=== PATIENT | female | born 1995 | race Caucasian/White ===

== ENCOUNTER 2023-10-11 00:09 | Emergency (ER) | payer OTHER ==
--- NOTE | 2023-10-11 00:12 | ED Physician Documentation ---
PD HPI ABD PAIN - Stated complaint Stated Complaint: D/STOMACH PX - History obtained from History obtained from: Patient - Additional information Additional information: HPI from patient. Patient complains of approximately 5 days of nausea, vomiting, diarrhea, and upper abdominal pain. She describes the pain as burning and indicates the location is primarily epigastric although it also radiates around the right upper quadrant, right flank, to the right upper paralumbar region. Pain waxes and wanes without apparent ameliorating factors but exacerbated with PO intake (PO intake also exacerbates her n/v/d). Denies blood in the vomitus although has noted trace bright red blood after bowel movements when she wipes (on the toilet paper). Denies chance of . She has had similar but milder symptoms over the past 3 weeks since starting weekly Trulicity. Her most recent dose of Trulicity was 5 days ago and her symptoms became noticeably worse that night and have been steadily progressive in persistence and intensity. Denies fever. Has not been on antibiotics recently Review of Systems Constitutional: denies: Fever, Chills, Sweats Cardiac: reports: Reviewed and negative Respiratory: reports: Reviewed and negative GI: reports: Abdominal Pain, Abdominal Swelling, Nausea, Vomiting, Diarrhea. denies: Constipation, Hematemesis : denies: Dysuria, Frequency, Now [facility] PD PAST MEDICAL HISTORY - Past Medical History Past Medical History: Yes Other Past Medical History: PCOS - Past Surgical History Past Surgical History: No - Present Medications Home Medications: Ambulatory Orders Medication Instructions Recorded Confirmed Diphenoxylate/Atropine [Lomotil] 1 each PO QID PRN #10 tablet 10/11/23 Gabapentin [Neurontin] 300 mg PO DAILY 10/11/23 10/11/23 Norethindrone AC-Eth Estradiol 1 tab PO DAILY 10/11/23 10/11/23 [Loestrin 21 1.5-30 Tablet] Ondansetron Odt [Zofran Odt] 4 mg TL Q6H PRN #14 tablet 10/11/23 PARoxetine HCL [Paxil] 20 mg PO DAILY 10/11/23 10/11/23 metFORMIN [Glucophage] 500 mg PO BID 10/11/23 10/11/23 - Allergies Allergies/Adverse Reactions: Allergies Allergy/AdvReac Type Severity Reaction Status Date / Time No Known Drug Allergies Allergy Verified 10/11/23 00:25 PD ED PE NORMAL - Vitals Vital signs reviewed: Yes - General General: Alert and oriented X 3, No acute distress, Well developed/nourished - HEENT HEENT: Moist mucous membranes - Cardiac Cardiac: RRR, No murmur - Respiratory Respiratory: No respiratory distress, Clear bilaterally - Abdomen Abdomen: Soft, Non distended, Other (mild RUQ TTP without rebound or guarding) - Back Back: No CVA TTP - Derm Derm: Normal color, Warm and dry, No rash Results - Vitals Vitals: Vital Signs - 24 hr 10/11/23 10/11/23 00:10 03:23 Temperature 36.5 C Heart Rate 99 77 Respiratory 16 18 Rate Blood Pressure 149/106 H 151/102 H O2 Saturation 100 97 Oxygen O2 Source Room air - Labs Labs: Laboratory Tests 10/11/23 10/11/23 10/11/23 00:50 01:26 01:26 WBC 12.6 H RBC 5.85 H Hgb 13.3 Hct 45.0 MCV 76.9 L MCH 22.7 L MCHC 29.6 L RDW 14.6 Plt Count 376 MPV 10.2 Neut # (Auto) 7.5 H Lymph # (Auto) 3.5 [place] # (Auto) 0.7 Eos # (Auto) 0.8 H Baso # (Auto) 0.1 Absolute Nucleated RBC 0.00 Nucleated RBC % 0.0 Sodium 140 Potassium 3.6 Chloride 105 Carbon Dioxide 26 Anion Gap 9.0 BUN 8 Creatinine 0.7 Estimated GFR (MDRD) 101 Glucose 103 Calcium 9.5 Total Bilirubin 0.2 AST 16 ALT 19 Alkaline Phosphatase 63 Total Protein 6.9 Albumin 4.0 Globulin 2.9 Albumin/Globulin Ratio 1.4 Lipase 13 Urine Color YELLOW Urine Clarity HAZY Urine pH 8.0 H Ur Specific [place] 1.025 Urine Protein TRACE Urine Glucose (UA) NEGATIVE Urine Ketones NEGATIVE Urine Occult Blood TRACE-INTA Urine Nitrite NEGATIVE Urine Bilirubin SMALL H Urine Urobilinogen 0.2 (NORMAL) Ur Leukocyte Esterase TRACE H Urine RBC 0-5 Urine WBC 4-5 Ur Squamous Epith Cells MANY Squamous H Urine Bacteria Moderate H Urine Mucus Moderate Strands Ur Microscopic Review INDICATED Urine Culture Comments NOT INDICATED Urine HCG, Qual NEGATIVE Stl C. diff Tox B Gene 10/11/23 02:25 WBC RBC Hgb Hct MCV MCH MCHC RDW Plt Count MPV Neut # (Auto) Lymph # (Auto) [place] # (Auto) Eos # (Auto) Baso # (Auto) Absolute Nucleated RBC Nucleated RBC % Sodium Potassium Chloride Carbon Dioxide Anion Gap BUN Creatinine Estimated GFR (MDRD) Glucose Calcium Total Bilirubin AST ALT Alkaline Phosphatase Total Protein Albumin Globulin Albumin/Globulin Ratio Lipase Urine Color Urine Clarity Urine pH Ur Specific [place] Urine Protein Urine Glucose (UA) Urine Ketones Urine Occult Blood Urine Nitrite Urine Bilirubin Urine Urobilinogen Ur Leukocyte Esterase Urine RBC Urine WBC Ur Squamous Epith Cells Urine Bacteria Urine Mucus Ur Microscopic Review Urine Culture Comments Urine HCG, Qual Stl C. diff Tox B Gene NEGATIVE PD Medical Decision Making - ED course Complexity details: reviewed results, re-evaluated patient, considered differential, d/w patient ED course: Mild leukocytosis (wbc 12.6), normal ER abdominal panel. Appendicitis unlikely (five days of symptoms with only mild RUQ tenderness on exam); no imaging studies indicated at this time. She is given 2 tablets lomotil PO, 4mg IV zofran, 1 liter NS IV, and 30cc maalox PO (viscous lidocaine ordered but currently not in stock and thus not given). She reports improvement with these measures. Declines pain medication both initially and on reevaluation. Results d/w patient, return precautions reviewed. Side effect of trulicity is likely explanation for her symptoms and I advised her to discontinue this medication and to seek follow up with PCP for reevaluation. Prescriptions for zofran and lomotil electronically submitted to patient's pharmacy of choice. Departure - Departure Disposition: 01 Home, Self Care Clinical Impression: Abdominal pain Qualifiers: Abdominal location: right upper quadrant Qualified Code(s): R10.11 - Right upper quadrant pain Condition: Good Instructions: ED Abdominal Pain Female Non-Specific Abdominal Pain Prescriptions: Diphenoxylate/Atropine [Lomotil] 1 each PO QID PRN #10 tablet PRN Reason: Diarrhea Ondansetron Odt [Zofran Odt] 4 mg TL Q6H PRN #14 tablet PRN Reason: Nausea / Vomiting Comments: There were no concerning nor diagnostic findings on tonight's test, including the blood tests and urinalysis. As we discussed, your white blood cell count was slightly elevated above the normal range; this is a non-specific finding and it is not elevated to a concerning extent. The cause of your symptoms is not apparent at this time, but side effect(s) of the Trulicity seems a likely explanation. You should discontinue use of Trulicity until and unless you are advised otherwise by your primary care provider. Contact your primary care provider when the office is next open to arrange for the next available appointment for reevaluation/follow-up. I have electronically submitted prescriptions for ondansetron (antinausea medication) and Lomotil (antidiarrheal medication) to the [facility] pharmacy in [place]. Forms: PCP List Discharge Date/Time: 10/11/23 03:24
[2023-10-11] MEDS: DIPHENOX/ATROPINE 2.5/0.025 MG TABLET PO STA (01:25)
[2023-10-11] MEDS: MAG HYDROX/AL HYDROX/SIMETH 30 ML UDC PO STA (01:25)
[2023-10-11] MEDS: ONDANSETRON 4 MG/2 ML VIAL IVP STA (01:25)
[2023-10-11] MEDS: SODIUM CHLORIDE 0.9% 1,000 ML IV STA (01:26)
[2023-10-11 01:35] LABS: BASOPHILS # (AUTO) 0.1 10^3/uL (0.0-0.1); BASOPHILS % (AUTO) 0.4 %; EOSINOPHILS # (AUTO) 0.8 10^3/uL (0.0-0.7); EOSINOPHILS % (AUTO) 6.3 %; HGB - HEMOGLOBIN 13.3 g/dL (12.0-16.0); LYMPHOCYTES # (AUTO) 3.5 10^3/uL (1.5-3.5); LYMPHOCYTES % (AUTO) 27.7 %; MEAN CORPUSCULAR HEMOGLOBIN 22.7 pg (27.0-31.0); MEAN CORPUSCULAR HGB CONC 29.6 g/dL (32.0-36.0); MEAN CORPUSCULAR VOLUME 76.9 fL (81.0-99.0); MEAN PLATELET VOLUME 10.2 fL (7.9-10.8); MONOCYTES # (AUTO) 0.7 10^3/uL (0.0-1.0); MONOCYTES % (AUTO) 5.9 %; NEUTROPHILS # (AUTO) 7.5 10^3/uL (1.5-6.6); NEUTROPHILS % (AUTO) 59.4 %; PLT - PLATELET COUNT 376 10^3/uL (130-450); RED BLOOD COUNT 5.85 10^6/uL (4.20-5.40); RED CELL DISTRIBUTION WIDTH 14.6 % (12.0-15.0); WHITE BLOOD COUNT 12.6 x10^3/uL (4.8-10.8)
[2023-10-11 01:53] LABS: BILIRUBIN,URINE SMALL (NEGATIVE); GLUCOSE, URINE (UA) NEGATIVE (NEGATIVE); KETONES,URINE (UA) NEGATIVE (NEGATIVE); LEUKOCYTE ESTERASE, URINE TRACE (NEGATIVE); NITRITE,URINE NEGATIVE (NEGATIVE); OCCULT BLOOD,URINE TRACE-INTA (NEGATIVE); PROTEIN,URINE TRACE mg/dL (NEGATIVE); UROBILINOGEN,URINE 0.2 (NORMAL) E.U./dL (NORMAL)
[2023-10-11 01:55] LABS: ALBUMIN/GLOBULIN RATIO 1.4 (1.0-2.2); BILIRUBIN,TOTAL 0.2 mg/dL (0.2-1.0); CALCIUM 9.5 mg/dL (8.5-10.3); CREATININE 0.7 mg/dL (0.6-1.3); POTASSIUM 3.6 mmol/L (3.5-4.5); TOTAL PROTEIN 6.9 g/dL (6.4-8.9)
[2023-10-11 02:07] LABS: CLARITY,URINE HAZY (CLEAR); HCG UR QUAL NEGATIVE
[2023-10-11 02:08] LABS: BACTERIA,URINE Moderate /HPF (None Seen); MUCUS,URINE Moderate Strands; RBC,URINE 0-5 /HPF (0-5); SQUAMOUS EPITHELIAL CELL,UR MANY Squamous (<= Few)
[2023-10-11 03:24] VITALS: BP 151/102; O2SAT 97
[2023-10-12 05:08] LABS: ADENOVIRUS F 40/41 Not Detected (Not Detected); ASTROVIRUS Not Detected (Not Detected); C DIFFICILE TOXIN A/B Not Detected (Not Detected); CAMPYLOBACTER Not Detected (Not Detected); CRYPTOSPORIDIUM Not Detected (Not Detected); CYCLOSPORA CAYETANENSIS Not Detected (Not Detected); ENTAMOEBA HISTOLYTICA Not Detected (Not Detected); ENTEROAGGREGATIVE E COLI Not Detected (Not Detected); ENTEROPATHOGENIC E COLI Not Detected (Not Detected); ENTEROTOXIGENIC E COLI Not Detected (Not Detected); GIARDIA LAMBLIA Not Detected (Not Detected); NOROVIRUS GI/GII Detected (Not Detected); PLESIOMONAS SHIGELLOIDES Not Detected (Not Detected); ROTAVIRUS A Not Detected (Not Detected); SALMONELLA Not Detected (Not Detected); SAPOVIRUS Not Detected (Not Detected); SHIGA-TOXIN-PRODUCING E COLI Not Detected (Not Detected); SHIGELLA/ENTEROINVASIVE E COLI Not Detected (Not Detected); VIBRIO Not Detected (Not Detected); VIBRIO CHOLERAE Not Detected (Not Detected); YERSINIA ENTEROCOLITICA Not Detected (Not Detected)
== END 2023-10-11 03:24 | disposition home or self-care (01) ==
LOC: ED 00:09
DX: R11.2 Nausea with vomiting, unspecified (principal); R19.7 Diarrhea, unspecified; R10.11 Right upper quadrant pain
CPT/HCPCS: 36415; 80053; 81001; 81025; 83690; 85025; 87493; 87507; 96374; 99283; 99284; A9270; 81003; 87086